=== PATIENT | male | born 1995 | race Caucasian/White ===

== ENCOUNTER 2019-12-17 07:15 | Emergency (ER) | payer SELFPAY ==
[~2019-12-17] VITALS: Ht 177.8 cm; Wt 85.7 kg
--- NOTE | 2019-12-17 07:26 | NUR ---
PATIENT DEANNARA, FOR OVERDOSE OF FENTANYL. PATIENT A/OX4, BREATHING EVEN AND UNLABORED, NO SOB NOTED, NEEDS ATTENDED, KEPT COMFORTABLE.
--- NOTE | 2019-12-17 07:38 | NUR ---
PATIENT IS REFUSING ANY TREATMENT, PT STS HE'S ALWAYS BEEN TACHYCARDIC. HE HAS NOT COMPLAINTS AND HE DIDN'T WANT TO BE TRANSFERRED HERE IN THE FIRST PLACE. DR. WAKEFIELD MADE AWARE.
--- NOTE | 2019-12-17 07:44 | NUR ---
Patient a/ox4, breathing even and unlabored, no sob noted. Ambulatory with steady gait. Called girlfriend for shrimp picker. IV removed. Catheter intact and site benign. Pressure and 4x4 applied to site. No bleeding noted. Patient discharged to home in stable condition. Written and verbal after care instructions given. Patient verbalizes understanding of instruction.
--- NOTE | 2019-12-17 07:46 | NUR ---
Patient does not wish to proceed with medical care recommended by Dr. WAKEFIELD. Patient given information related to possible complications, up to and including , which could occur as a result of leaving the hospital at this time. Patient verbalizes understanding of risks involved due to leaving against medical advice. Patient has signed AMA form.
[2019-12-17 08:17] VITALS: BP 156/78
== END 2019-12-17 08:17 | disposition left against medical advice (07) ==
LOC: ER 07:21
DX: T40.411A Poisoning by fentanyl or fentanyl analogs, accidental (unintentional), initial encounter (principal); Y92.89 Other specified places as the place of occurrence of the external cause